=== PATIENT | male | born 1975 | race African-American/Black ===

== ENCOUNTER 2019-01-24 02:23 | Emergency (ER) | payer OTHER ==
[~2019-01-24] VITALS: Ht 177.8 cm; Wt 84.1 kg
[2019-01-24 02:25] VITALS: Ht 177.8 cm; Wt 84.1 kg
[2019-01-24] MEDS ORDERED: KETOROLAC 30 MG INJ IM STA (02:35)
[2019-01-24 02:43] VITALS: BP 121/62; PULSE 79; RESP 18
[2019-01-24] MEDS ORDERED: OXYCODONE/ACETAMINOPHEN (5/325) TAB PO ONE (03:00)
[2019-01-24] MEDS ORDERED: IBUP-1542 PO (03:20)
[2019-01-24] MEDS ORDERED: DIPHTH/TET/ACEL PERTUSS (ADULT) 0.5 ML VIAL IM* ONE (03:30)
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
== END 2019-01-24 03:29 ==
LOC: E/R 02:23
DX: S63.91XA Sprain of unspecified part of right wrist and hand, initial encounter (principal); R51 Headache; Y04.0XXA Assault by unarmed brawl or fight, initial encounter; Z02.89 Encounter for other administrative examinations; Z23 Encounter for immunization
CPT/HCPCS: 70450; 73110; 73130; 90471; 90715; 96372; 99285; J1885